=== PATIENT | male | born 1960 | race Caucasian/White ===

== ENCOUNTER 2021-04-10 12:11 | Outpatient (REF) | payer OTHER, SELFPAY ==
--- NOTE | ~2021-04-10 | XR_ITS ---
EXAMINATION: XR BILATERAL HIPS WITH AP PELVIS CLINICAL INFORMATION: Sacroiliitis COMPARISON: None TECHNIQUE: AP view of the pelvis and single views of each hip were obtained. 5 views total FINDINGS: There is normal symmetry of bilateral SI joints and hip joints. No visible fracture or dislocation seen. AP and frog-leg views each hip reveal no visible acute fracture, dislocation or bony erosive changes. The soft tissues are normal. AP and frog-leg views both hip reveal no fracture, dislocation subluxation. The soft tissues are normal. XR/XR hip BI w PEL1V IMPRESSION: Unremarkable bilateral AP pelvis. Unremarkable bilateral hips.
== END 2021-04-10 12:12 | disposition home or self-care (01) ==
LOC: HO.XRAY 12:11
PROVIDERS: PCP Internal Medicine; Visit Provider Physical Medicine & Rehabilitation
DX: M46.1 Sacroiliitis, not elsewhere classified (principal)
CPT/HCPCS: 73521

== ENCOUNTER 2022-01-22 12:44 | Outpatient (REF) | payer OTHER, SELFPAY ==
--- NOTE | ~2022-01-22 | XR_ITS ---
EXAMINATION: XR LUMBOSACRAL SPINE CLINICAL INFORMATION: Right hip pain COMPARISON: None TECHNIQUE: Three views of the lumbosacral spine. FINDINGS: Vertebral body heights are maintained. No evidence of acute fracture. The disc spaces are preserved and the vertebral alignment is normal. The paraspinal soft tissues are normal. No diastases of the SI joints or symphysis pubis. XR/XR lumbar spine 2-3V IMPRESSION: No acute osseous abnormality
--- NOTE | ~2022-01-22 | XR_ITS ---
EXAMINATION: XR BILATERAL HIPS WITH AP PELVIS CLINICAL INFORMATION: Right hip pain COMPARISON: X-ray 04/10/2021 TECHNIQUE: Pelvis one view. Right hip 2 views. Left hip 2 views. FINDINGS: Anatomic alignment of bilateral hip joints. No visible fracture or dislocation. Joint spaces are maintained. No diastasis of the SI joints. Symphysis pubis is intact. No suspicious bony lesions seen. No abnormal soft tissue calcification. XR/XR hip BI w PEL1V IMPRESSION: No significant osseous abnormality seen.
== END 2022-01-22 12:45 | disposition home or self-care (01) ==
LOC: HO.XRAY 12:44
PROVIDERS: PCP Internal Medicine; Visit Provider Internal Medicine
DX: M25.551 Pain in right hip (principal)
CPT/HCPCS: 72100; 73521